=== PATIENT | male | born 1980 | race Caucasian/White ===

== ENCOUNTER 2018-02-03 07:52 | Observation (INO) | payer OTHER ==
--- NOTE | 2018-02-03 08:22 | ED ---
General Adult HPI - General Chief complaint: Chest Pain Stated complaint: CHEST PAIN Source: patient Mode of arrival: ambulatory Limitations: no limitations - History of Present Illness Initial comments: Dictation was produced using [employer] dictation software. please excuse any grammatical, word or spelling errors. Chief Complaint: 37-year-old male past medical history tobacco abuse presents with chest pain History of Present Illness: She is a 29-year-old male presents with chest pain. Patient states that he was in bed when he awoke approximately 1 AM with severe sharp chest pain. He states the chest pain is located to the right and left anterior chest. It's worse with deep inspiration. who accompanies patient states that he's been coughing all night. He, vomiting, diaphoresis associated with this chest pain. At approximately 1 AM when he woke up he was taken to [facility] emergency Department were cardiac workup was pursued. Patient was concerned he is having a heart attack. Cardiac workup was performed. He reports that he was initially recommended to be transferred to [facility] however they preferred that he be transferred to [facility] for financial reasons. Case is discussed with on-call inspector subassembly last night recommended that patient be transferred to [facility] for possible cardiac catheterization. There was concern about unstable angina prompting me to transfer here. Patient feels well at the moment. States she is given morphine with improvement of his symptoms. Patient denies any strong family history of cardiac disease or sudden before the age of 40 The ROS documented in this emergency department record has been reviewed and confirmed by me. Those systems with pertinent positive or negative responses have been documented in the HPI. All other systems are other negative and/or noncontributory. - Related Data Home Medications Medication Instructions Recorded Confirmed Dextroamphetamine/Amphetamine 30 mg PO BID 02/03/18 02/03/18 [Adderall] oxyCODONE-APAP 10-325MG [Percocet 1 tab PO BID PRN 02/03/18 02/03/18 10-325 mg] Allergies Allergy/AdvReac Type Severity Reaction Status Date / Time No Known Allergies Allergy Verified 02/03/18 08:28 Review of Systems ROS Statement: Those systems with pertinent positive or pertinent negative responses have been documented in the HPI. ROS Other: All systems not noted in ROS Statement are negative. Past Medical History Additional Past Medical History / Comment(s): chronic back pain History of Any Multi-Drug Resistant Organisms: None Reported Past Surgical History: Hernia Repair Past Psychological History: ADD/ADHD Smoking Status: Current every day smoker Past Alcohol Use History: None Reported Past Drug Use History: None Reported General Exam - General Exam Comments Initial Comments: PHYSICAL EXAM: General Impression: Alert and oriented x3, not in acute distress HEENT: Normocephalic atraumatic, extra-ocular movements intact, pupils equal and reactive to light bilaterally, mucous membranes moist. Cardiovascular: Heart regular rate and rhythm, S1&S2 audible, no murmurs, rubs or gallops Chest: Lungs clear to auscultation bilaterally, no rhonchi, no wheeze, no rales Abdomen: Bowel sounds present, abdomen soft, non-tender, non-distended, no organomegaly Musculoskeletal: Pulses present and equal in all extremities, no peripheral edema Motor: Power 5/5 bilaterally, no focal deficits noted Neurological: CN II-XII grossly intact, no focal motor or sensory deficits noted Skin: Intact with no visualized rashes Psych: Normal affect and mood Limitations: no limitations Course Vital Signs 02/03/18 07:54 Temperature 98.4 F Pulse Rate 73 Respiratory 20 Rate Blood Pressure 112/72 O2 Sat by Pulse 99 Oximetry Medical Decision Making - Medical Decision Making ED course: 37-year-old male transferred from [facility] for concerns of unstable angina. Vital signs upon arrival are within acceptable limits. Patient is well-appearing. Clinical presentation is more suggestive of pleuritic atypical chest pain rather than unstable angina at this time. And risk factors are tobacco abuse. It was reviewed from [facility]. Patient had first troponin that was negative. Rest of labs are otherwise unremarkable. Chest x-ray was negative [facility]. EKG obtained at our facility did not shows findings of ischemia or infarction. Repeat troponin was drawn at her facility given that initial troponin was drawn 3 hours ago. Discussed patient case with Dr. Gardiner. He agrees that patient should be admitted to observation for cardiac consultation and further medical monitoring. Patient received an aspirin at [facility]. Patient reevaluated found in stable medical condition. Patient and family member understandable and agreeable to disposition. EKG Interpretation: A 12 lead EKG was obtained. It was interpreted by myself and attending physician. There is a P wave before every QRS complex. Rate is 69. Rhythm is normal sinus rhythm, DE interval 144, QRS 82, QTC 396. QT is not prolonged. No ST segment depression or elevation. There are ST elevations however they appear to be associated with benign early repolarization given ST morphology.. Overall, this EKG is unremarkable - Lab Data Lab Results 02/03/18 Range/Units 08:18 Troponin I <0.012 (0.000-0.034) ng/mL Disposition Clinical Impression: Chest pain Disposition: ADMITTED IP TO THIS HOSP Referrals: None,Stated [Primary Care Provider] - 1-2 days Decision Time: 09:15
[2018-02-03] MEDS ORDERED: MORPHINE SULFATE 4 MG/ML SYRINGE IVP STA (08:30)
[2018-02-03 09:09] LABS: Troponin I <0.012 ng/mL (0.000-0.034)
[2018-02-03] MEDS ORDERED: NITROGLYCERIN SL TABS 0.4 MG TAB SUBLINGUAL PRN (09:11)
[2018-02-03] MEDS ORDERED: PNEUMOCOCCAL VACC-PNEUMOVAX 23 25 MCG/0.5 ML VIAL IM ONE (09:55)
[2018-02-03 10:01] LABS: Creatine Kinase 167 U/L (55-170)
[2018-02-03 10:11] LABS: Creatine Kinase MB 1.9 ng/mL (0.0-2.4)
[2018-02-03] MEDS: COLCHICINE 0.6 MG EACH PO SCH ×2 (11:57→19:43)
[2018-02-03] MEDS: IBUPROFEN 600 MG TAB PO SCH ×3 (11:57→19:43)
--- NOTE | 2018-02-03 12:31 | ECHOF ---
Referral Reason:chest pain MEASUREMENTS -------- HEIGHT: 172.7 cm WEIGHT: 77.6 kg BP: IVSd: 1.0 cm (0.6 - 1.1) LVIDd: 4.6 cm (3.9 - 5.3) LVPWd: 1.2 cm (0.6 - 1.1) IVSs: 1.3 cm LVIDs: 3.4 cm LVPWs: 1.2 cm LA Diam: 3.4 cm (2.7 - 3.8) Ao Diam: 2.9 cm (2.0 - 3.7) AV Cusp: 1.6 cm (1.5 - 2.6) LA Diam: 4.1 cm (2.7 - 3.8) MV EXCURSION: 21.866 mm (> 18.000) MV EF SLOPE: 113 mm/s (70 - 150) EPSS: 0.2 cm MV E Reggie: 0.68 m/s MV DecT: 184 ms MV A Reggie: 0.60 m/s MV E/A Ratio: 1.14 RAP: 5.00 mmHg RVSP: 25.72 mmHg FINDINGS -------- Sinus rhythm. This was a technically good study. LV size, wall thickness and systolic function are normal, with an EF greater than 55%. The left mónica tricular size is normal. The right ventricle is normal in size. The left atrial size is normal. The right atrial size is normal. The aortic valve is trileaflet, and appears structurally normal. No aortic stenosis or regurgitation. Mild mitral regurgitation is present. Mild tricuspid regurgitation present. There is no evidence of pulmonary hypertension. The right v entricular systolic pressure, as measured by Doppler, is 25.72mmHg. There is no pulmonic regurgitation present. The aortic root size is normal. There is no pericardial effusion. CONCLUSIONS -------- 1. LV size, wall thickness and systolic function are normal, with an EF greater than 55%. 2. The left ventricular size is normal. 3. The right ventricle is normal in size. 4. The left atrial size is normal. 5. The right atrial size is normal. 6. The aortic valve is trileaflet, and appears structurally normal. No aortic stenosis or regurgitati on. 7. Mild mitral regurgitation is present. 8. Mild tricuspid regurgitation present. 9. There is no evidence of pulmonary hypertension. 10. The right ventricular systolic pressure, as measured by Doppler, is 25.72mmHg. 11. There is no pulmonic regurgitation present. 12. The aortic root size is normal. 13. There is no pericardial effusion. CARPET WINDER: Julieta Tubbs RDCS
[2018-02-03 14:39] LABS: Creatine Kinase 118 U/L (55-170)
--- NOTE | 2018-02-03 14:48 | P.HPIM ---
History of Present Illness This is a pleasant 37 years old male with past medical history of GERD, chronic low back pain, frequent bilateral leg/feet numbness and leg cramps, occasional bilateral lateral shoulder and hip pain. Who presents because of chest pain of one-day duration that started around 1:00 yearly a.m. today. The chest pain central nonradiating, sharp increase with a breathing. Was 9/10 in severity in the beginning now came down to dull tolerable pain which shows up only with deep breath. Not associated with dyspnea, no nausea vomiting or change in urine or bowel habits. No fever. EKG in the paper chart: Normal sinus rhythm at 69, left ventricular hypertrophy , ST elevation in several lytes. QTC 396 As per transfer documents patient initial troponins is negative, d-dimer is negative. Chest x-ray report normal exam Review of Systems CONSTITUTIONAL: No fever, no malaise, no fatigue. HEENT: No recent visual problems or hearing problems. Denied any sore throat. CARDIOVASCULAR: No orthopnea, PND, no palpitations, no syncope. PULMONARY: No shortness of breath, no cough, no hemoptysis. GASTROINTESTINAL: No diarrhea, no nausea, no vomiting, no abdominal pain. Normoactive bowel sounds. NEUROLOGICAL: No headaches, no weakness, no numbness. HEMATOLOGICAL: Denies any bleeding or petechiae. GENITOURINARY: Denies any burning micturition, frequency, or urgency. MUSCULOSKELETAL/RHEUMATOLOGICAL: Denies any joint pain, swelling, or any muscle pain. ENDOCRINE: Denies any polyuria or polydipsia. Past Medical History Past Medical History: GERD/Reflux Additional Past Medical History / Comment(s): chronic low back pain, DDD, frequent bilateral leg/feet numbness and leg cramps, occasional bilateral shoulder/hip pain, past migraines. History of Any Multi-Drug Resistant Organisms: None Reported Past Surgical History: Hernia Repair Additional Past Surgical History / Comment(s): Umbilical hernia repair x2. Past Anesthesia/Blood Transfusion Reactions: No Reported Reaction Smoking Status: Current every day smoker - Past Family History Mother Family Medical History: Dementia Father Family Medical History: Hypertension Medications and Allergies Home Medications Medication Instructions Recorded Confirmed Type Dextroamphetamine/Amphetamine 30 mg PO BID 02/03/18 02/03/18 History [Adderall] oxyCODONE-APAP 10-325MG [Percocet 1 tab PO BID PRN 02/03/18 02/03/18 History 10-325 mg] Allergies Allergy/AdvReac Type Severity Reaction Status Date / Time No Known Allergies Allergy Verified 02/03/18 08:28 Physical Exam Vitals: Vital Signs Temp Pulse Pulse Resp BP BP Pulse Ox 02/03/18 10:50 18 02/03/18 10:03 98.3 F 66 18 124/75 94 L 02/03/18 09:33 73 18 112/71 98 02/03/18 07:54 98.4 F 73 20 112/72 99 Intake and Output 02/02/18 02/03/18 02/03/18 22:59 06:59 14:59 Intake Total 118 Balance 118 Intake: Oral 118 Other: Voiding Method Toilet Weight 77.6 kg GENERAL: The patient is alert and oriented x3, not in any acute distress. Well developed, well nourished. HEENT: Pupils are round and equally reacting to light. EOMI. No scleral icterus. No conjunctival pallor. Normocephalic, atraumatic. No pharyngeal erythema. No thyromegaly. CARDIOVASCULAR: S1 and S2 present. No murmurs, rubs, or gallops. PULMONARY: Chest is clear to auscultation, no wheezing or crackles. ABDOMEN: Soft, nontender, nondistended, normoactive bowel sounds. No palpable organomegaly. MUSCULOSKELETAL: No joint swelling or deformity. EXTREMITIES: No cyanosis, clubbing, or pedal edema. NEUROLOGICAL: Gross neurological examination did not reveal any focal deficits. SKIN: No rashes. Thrombosis Risk Factor Assmnt - Choose All That Apply Any of the Below Risk Factors Present?: Yes Each Factor Represents 1 point: Obesity (BMI >25) Other Risk Factors: No Other congenital or acquired thrombophilia - If yes, enter type in comment: No Thrombosis Risk Factor Assessment Total Risk Factor Score: 1 Thrombosis Risk Factor Assessment Level: Low Risk Assessment and Plan Assessment: Acute pericarditis GERD chronic low back pain Story of frequent bilateral leg/feet numbness and leg cramps, occasional bilateral lateral shoulder and hip pain Plan: This is a pleasant 57 years old male who presents with acute pericarditis. Continue with the same treatment. Continue with symptomatic treatment. Resume home medication. Hold ibuprofen. Continue with aspirin as per cardiology recommendation Cardiology consult. Monitor labs and vitals. Pain management. GI and DVT prophylaxis. Further recommendations based on the clinical course of the patient. I VT prophylaxis, mechanical. Heparin has more risks than benefits GI prophylaxis Pepcid
[2018-02-03 14:52] LABS: Creatine Kinase MB 1.3 ng/mL (0.0-2.4); Troponin I <0.012 ng/mL (0.000-0.034)
--- NOTE | 2018-02-03 14:54 | XR ---
EXAMINATION TYPE: XR chest 2V DATE OF EXAM: 02/03/2018 COMPARISON: Prior chest x-ray dated 12 02/03/2018 from outside institution HISTORY: Chest pain TECHNIQUE: Frontal and lateral views of the chest are obtained. FINDINGS: Minimal strand-like densities at the lung bases may reflect atelectasis. There are overlyi ng cardiac leads. Cardiomediastinal silhouette, pulmonary vascularity and rosa isela are stable. No evident pneumothorax or pleural effusion. IMPRESSION: Suspect some basilar atelectasis has developed in the interval, correlate, follow-up sug gested.
--- NOTE | 2018-02-03 14:56 | CONS ---
CONSULTATION Mr. Sepulveda is a 37-year-old gentleman who was transferred from the [facility] with a complaint of chest pain. The patient gives a history that he woke up around 1 o'clock with sharp chest pain. The pain was located in the right and left anterior part of the chest and the pain was increasing with breathing. He had some nausea and diaphoresis associated with that. The patient was subsequently seen at the [facility]. EKGs and initial cardiac enzymes were normal. Patient preferred to be transferred to the [facility] and was transferred. His second EKG done in the [facility] emergency room also did not show any changes. Patient denied any fever or chills. Patient denies any symptoms of recent viral infection and denies any past history of exertional chest pain. PAST MEDICAL HISTORY: Includes history of ADD and hernia repair. SOCIAL HISTORY: Patient is a currently everyday smoker. Patient's home medications include Adderall and oxycodone. PHYSICAL EXAMINATION: At present reveals a 37-year-old gentleman who does not appear to be in any acute distress. Patient is afebrile. Respiratory rate is 20, blood pressure is 112/77 mmHg, oxygen saturation is 99%. HEENT examination is negative. Neck is supple. There is no increase in jugular venous pressure. Both the carotid pulses are felt, there is no bruit. Chest is symmetrical. HEART: The PMI is not felt. First and second heart sounds are normal. There is no evidence of any murmur. Lungs are clinically clear to auscultation and percussion. Abdomen is soft. Liver and spleen are not enlarged. Bowel sounds are heard. EXTREMITIES: Peripheral pulsations are 2+. EKG shows normal sinus rhythm without any acute ischemic changes. There is some J- point elevation. The cardiac troponins are normal x2. On physical examination, there is suggestion of pleural pericardial rub. FINAL IMPRESSION: This patient's predominant problem is a pleuritic pain. There is evidence of pleuropericardial rub suggestive of possible pleurisy and pericarditis. We will get the C-reactive protein and sedimentation rate and treat the patient with Motrin and Colcrys. After the patient's pain is subsided, we will evaluate with a stress test. \ MMODL / IJN: [id number] /
[2018-02-03 21:19] LABS: Creatine Kinase 88 U/L (55-170)
[2018-02-03 21:30] LABS: Creatine Kinase MB 1.1 ng/mL (0.0-2.4); Troponin I <0.012 ng/mL (0.000-0.034)
[2018-02-04 03:24] LABS: Cholesterol 187 mg/dL (<200); HDL Cholesterol 46 mg/dL (40-60); LDL Cholesterol,Calculated 128 mg/dL (0-99); Triglycerides 67 mg/dL (<150)
[2018-02-04] MEDS: IBUPROFEN 600 MG TAB PO SCH (08:38)
[2018-02-04] MEDS: COLCHICINE 0.6 MG EACH PO SCH ×2 (08:38→20:27)
[2018-02-04] MEDS ORDERED: ASPIRIN 325 MG TAB PO SCH (09:00)
[2018-02-04] MEDS ORDERED: KETOROLAC 30 MG/ML 1 ML VIAL IVP STA (09:45)
[2018-02-04] MEDS ORDERED: KETOROLAC 30 MG/ML 1 ML VIAL IVP PRN (11:16)
[2018-02-04] MEDS ORDERED: KETOROLAC 30 MG/ML 1 ML VIAL IVP SCH (12:00)
--- NOTE | 2018-02-04 12:13 | P.PN ---
Subjective Mr. Sepulveda is seen and examined laying flat sleeping in bed. He continues to complain of pleuritic chest pain on right and left side, worse with movement, deep inspiration or positional. He states the pain has improved slightly since admission but still comes when he sits up or lays on his right side. Pain is almost completely resolved if he lays on his left side. CRP 34.2, ESR 13. Blood pressure 110/73 heart rate 60 afeibrile. Echocardiogram obtained yesterday reveals preserved LV systolic function with EF greater than 55%. Objective - Vital Signs Vital signs: Vital Signs Temp 97.9 F 02/04/18 07:15 Pulse 65 02/04/18 07:15 Resp 18 02/04/18 07:15 BP 118/74 02/04/18 07:15 Pulse Ox 97 02/04/18 07:15 Intake & Output 02/03/18 02/04/18 02/04/18 18:59 06:59 18:59 Intake Total 518 240 Balance 518 240 Weight 77.6 kg Intake: Oral 518 240 Other: Voiding Method Toilet Toilet - Exam GENERAL: Well-appearing, well-nourished and in no acute distress. NECK: Supple without JVD or thyromegaly. LUNGS: Breath sounds clear to auscultation bilaterally. Respiration equal and unlabored. No wheezes, rales or rhonchi. HEART: Regular rate and rhythm without murmurs, rubs or gallops. S1 and S2 heard. EXTREMITIES: Normal range of motion, no edema. No clubbing or cyanosis. Peripheral pulses intact. - Labs Labs: Abnormal Lab Results - Last 24 Hours (Table) 02/03/18 02/03/18 Range/Units :18 13:52 C-Reactive Protein 34.2 H (<10.0) mg/L LDL Cholesterol, Calc 128 H (0-99) mg/dL Assessment and Plan Assessment: ASSESSMENT Acute pericarditis on colchicine and ibuprofen PLAN Continue with colchicine and ibuprofen as previously ordered. Increase PO intake of water. Keep for another 24 hours for ongoing monitoring. If pain is better tomorrow he should be able to go home. Nurse Practitioner note has been reviewed, I agree with a documented findings and plan of care. Patient was seen and examined.
[2018-02-04] MEDS ORDERED: HYDROmorphone 1 MG/ML 1 ML SYRINGE IVP STA ×2 (14:11→14:19)
[2018-02-04] MEDS ORDERED: ALPRAZolam 0.5 MG TAB PO STA (14:19)
[2018-02-04] MEDS ORDERED: MORPHINE SULFATE 4 MG/ML SYRINGE IVP PRN (15:04)
[2018-02-04] MEDS: traMADol 50 MG TAB PO SCH ×2 (16:46→21:07)
[2018-02-05] MEDS: traMADol 50 MG TAB PO SCH ×2 (08:49→16:24)
[2018-02-05] MEDS: COLCHICINE 0.6 MG EACH PO SCH (08:49)
--- NOTE | 2018-02-05 09:27 | P.PN ---
Subjective Patient feels better today. Chest pain is better. He was diagnosed with pericarditis and treated with colchicine On examination temperature 99.2F, normal respirations normal heart rate blood pressure normal 110/72 mmHg No pericardial rub no murmurs Breath sounds are clear no rhonchi no crackles Abdomen soft nontender Extremities warm no edema Impression Pericarditis on colchicine Suggest Patient go home from a cardiac standpoint and follow Dr. Smith. He's been instructed not to use steroids for rapid relief of pain. He should be treated with colchicine and H2 blockers Objective - Vital Signs Vital signs: Vital Signs Temp 99.2 F 02/05/18 04:00 Pulse 81 02/05/18 04:00 Resp 16 02/05/18 04:00 BP 110/72 02/05/18 04:00 Pulse Ox 94 L 02/05/18 04:00 Intake & Output 02/04/18 02/05/18 02/05/18 18:59 06:59 18:59 Intake Total 462 Balance 462 Intake: Oral 462 Other: Voiding Method Toilet Toilet # Voids 1
[2018-02-05 16:01] VITALS: BP 115/81; PULSE 79; RESP 18; TEMP 98.5
--- NOTE | 2018-02-05 17:04 | P.DS ---
Providers Date of admission: 02/03/18 09:11 Attending physician: James Boyce Consults: 02/03/18 09:11 Consult Physician Urgent Consulting Provider: Ivan Gardiner Consult Reason/Comments: chest pain Do you want consulting provider notified?: Already Contacted Primary care physician: Stated None Hospital Course: This is a pleasant 37 years old male with past medical history of GERD, chronic low back pain, frequent bilateral leg/feet numbness and leg cramps, occasional bilateral lateral shoulder and hip pain. Who presents because of chest pain of one-day duration . EKG in the paper chart: Normal sinus rhythm at 69, left ventricular hypertrophy, ST elevation in several leads. QTC 396. As per transfer documents patient initial troponins is negative, d-dimer is negative. Chest x-ray report normal exam. Echocardiogram: Ejection fraction 55%, there is no pericardial effusion. Patient has been evaluated by clinical care manager and suspected to have pericarditis, patient was treated with pain killers, and he showed interval improvement, on the day of discharge patient has minimal chest pain about 1-2 in severity only on deep inspiration. No coughing no shortness of breath no fever. Patient has been cleared by cardiology for discharge Problem list and management plan were discussed with the patient and he verbalized understanding and acceptance. Patient is found stable he needs follow-up as an outpatient. A shunt agrees with the appointments and its timing with the cardiology office. GENERAL: The patient is alert and oriented x3, not in any acute distress. Well developed, well nourished. HEENT: Pupils are round and equally reacting to light. EOMI. No scleral icterus. No conjunctival pallor. Normocephalic, atraumatic. No pharyngeal erythema. No thyromegaly. CARDIOVASCULAR: S1 and S2 present. No murmurs, rubs, or gallops. PULMONARY: Chest is clear to auscultation, no wheezing or crackles. ABDOMEN: Soft, nontender, nondistended, normoactive bowel sounds. No palpable organomegaly. MUSCULOSKELETAL: No joint swelling or deformity. EXTREMITIES: No cyanosis, clubbing, or pedal edema. NEUROLOGICAL: Gross neurological examination did not reveal any focal deficits. SKIN: No rashes. Time spent more than 35 minutes Patient Condition at Discharge: Good Plan - Discharge Summary Discharge Rx Participant: No New Discharge Prescriptions: New Colchicine [Colcrys] 0.6 mg PO BID 10 Days #20 each Famotidine [Pepcid] 20 mg PO BID #60 tab Continue Dextroamphetamine/Amphetamine [Adderall] 30 mg PO BID oxyCODONE-APAP 10-325MG [Percocet 10-325 mg] 1 tab PO BID PRN PRN Reason: Pain Discharge Medication List Dextroamphetamine/Amphetamine [Adderall] 30 mg PO BID 02/03/18 [History] oxyCODONE-APAP 10-325MG [Percocet 10-325 mg] 1 tab PO BID PRN 02/03/18 [History] Colchicine [Colcrys] 0.6 mg PO BID 10 Days #20 each 02/05/18 [Rx] Famotidine [Pepcid] 20 mg PO BID #60 tab 02/05/18 [Rx] Follow up Appointment(s)/Referral(s): Radames Barakat MD [STAFF PHYSICIAN] - 1 Week Aleena Smith MD [STAFF PHYSICIAN] - 02/11/18 4:15 pm Activity/Diet/Wound Care/Special Instructions: diet: cardiac diet activity: limited till you see your doctor Discharge Disposition: HOME SELF-CARE
[2018-02-05] MEDS ORDERED: FAMOTIDINE 20 MG TAB PO SCH (18:00)
== END 2018-02-05 17:09 | disposition home or self-care (01) ==
LOC: EC 07:52 → 3OBS 09:11
PROVIDERS: ADMIT Hospitalist; ATTEND Hospitalist
DX: I30.9 Acute pericarditis, unspecified (principal); G89.29 Other chronic pain; M54.5 Low back pain; F90.9 Attention-deficit hyperactivity disorder, unspecified type; F17.200 Nicotine dependence, unspecified, uncomplicated; K21.9 Gastro-esophageal reflux disease without esophagitis; E66.9 Obesity, unspecified; Z68.26 Body mass index [BMI] 26.0-26.9, adult; G43.909 Migraine, unspecified, not intractable, without status migrainosus; R25.2 Cramp and spasm; R20.0 Anesthesia of skin; M25.512 Pain in left shoulder; M25.511 Pain in right shoulder; M25.559 Pain in unspecified hip; Z79.899 Other long term (current) drug therapy; Z82.49 Family history of ischemic heart disease and other diseases of the circulatory system; Z81.8 Family history of other mental and behavioral disorders
CPT/HCPCS: 99285 ×2; 96374 ×2; 96375; 96376; 36415; 93005; 93306; 80061; 85652; 82550; 82553; 84484; 86140; 71046; G0378 ×3; J2270 ×2; J1885; J1170

== ENCOUNTER → 2019-10-30 | Outpatient (CLI) | payer BC | END | disposition home or self-care (01) | LOC: LABWHC1 08:36 | PROVIDERS: ATTEND Emergency Medicine | DX: U07.1 COVID-19 (principal) ==

== ENCOUNTER → 2019-12-14 | Day surgery (SDC) | payer BC ==
[~2019-12-14] MED LIST: LACTATED RINGERS 1,000 ML IV ONE; LACTATED RINGERS 1,000 ML IV SCH; LIDOCAINE 1% (10MG/ML) FOR IV START INTRADERMA ONE; LIDOCAINE 1% INJ 10MG/ML (20 ML MDV) ONE; MIDAZOLAM 2 MG/2 ML VIAL ONE; PROPOFOL 10 MG/ML 20 ML VIAL IV ONE; fentaNYL (PF) 50 MCG/ML 2 ML AMP ONE
[2019-12-14 10:57] VITALS: RESP 16; TEMP 96.9
--- NOTE | 2019-12-14 11:02 | P.GSHP ---
History of Present Illness H&P Date: 12/14/19 Chief Complaint: GI bleed This a 39-year-old male who's had complete rectal bleeding. Patient presents today for colonoscopy. He is also had complaints of epigastric pain. He will also EGD performed. Past Medical History Past Medical History: GERD/Reflux Additional Past Medical History / Comment(s): chronic low back pain, DDD, frequent bilateral leg/feet numbness and leg cramps, occasional bilateral shou lder/hip pain, past migraines. HAVING BLOOD IN STOOL AND INCREASE IN HEARTBURN History of Any Multi-Drug Resistant Organisms: None Reported Past Surgical History: Hernia Repair Additional Past Surgical History / Comment(s): Umbilical hernia repair x2. Past Anesthesia/Blood Transfusion Reactions: No Reported Reaction Smoking Status: Current every day smoker - Past Family History Mother Family Medical History: Dementia Father Family Medical History: Hypertension Medications and Allergies Home Medications Medication Instructions Recorded Confirmed Type No Known Home Medications 12/13/19 12/14/19 History Allergies Allergy/AdvReac Type Severity Reaction Status Date / Time No Known Allergies Allergy Verified 12/14/19 10:43 Surgical - Exam Vital Signs Temp Pulse Resp BP Pulse Ox 96.9 F L 90 16 137/61 97 12/14/19 10:56 12/14/19 10:56 12/14/19 10:56 12/14/19 10:56 12/14/19 10:56 - General well developed, well nourished, no distress - Eyes PERRL - ENT normal pinna - Neck no masses - Respiratory normal expansion - Cardiovascular Rhythm: regular - Abdomen Abdomen: soft, non tender Assessment and Plan Assessment: GI bleed. We'll perform colonoscopy. Epigastric abdominal pain. We'll perform EGD.
--- NOTE | 2019-12-14 11:22 | P.OP ---
Date of Procedure: 12/14/19 Preoperative Diagnosis: GI bleed Epigastric pain Postoperative Diagnosis: Antral gastritis Hiatal hernia Esophagitis External hemorrhoids Procedure(s) Performed: EGD Colonoscopy Anesthesia: MAC Surgeon: Dale Pelaez Pathology: other (Antrum, esophagus) Condition: stable Disposition: PACU Description of Procedure: The patient's placed on the endoscopy table in the lateral position. He received IV sedation. The gastric was placed oropharynx passed in the esophagus and stomach. Scope was then placed through the pylorus. The first and second portion of the duodenum appeared normal. Scope was then brought back the antrum this. Mildly inflamed. A biopsies performed. Scope was unretroflexed and remainder of the stomach appeared normal. There was a moderate size hiatal hernia. The GE junction was at 38 cm. The distal esophagus appeared inflamed and a biopsy was performed. The proximal esophagus appeared normal. Scope was withdrawn for patient. Next digital rectal exam was performed which revealed external hemorrhoids. The flexible colonoscope was then placed patient anus passed throughout the entire colon. The ileocecal valve was visualized. The cecum, ascending and transverse colon appeared normal. In the descending and sigmoid colon there is mild diverticular changes. Scope was then withdrawn through the anus and external hemorrhoids are noted.
[2019-12-14 11:39] VITALS: BP 113/67; PULSE 70
== END | disposition home or self-care (01) ==
LOC: ORWHC2ENDO 10:25
PROVIDERS: ATTEND Surgery
DX: K64.4 Residual hemorrhoidal skin tags (principal); K57.30 Diverticulosis of large intestine without perforation or abscess without bleeding; K29.70 Gastritis, unspecified, without bleeding; K44.9 Diaphragmatic hernia without obstruction or gangrene; K21.0 Gastro-esophageal reflux disease with esophagitis; M54.5 Low back pain; G89.29 Other chronic pain; G43.909 Migraine, unspecified, not intractable, without status migrainosus; F17.200 Nicotine dependence, unspecified, uncomplicated; Z98.890 Other specified postprocedural states; Z81.8 Family history of other mental and behavioral disorders; Z82.49 Family history of ischemic heart disease and other diseases of the circulatory system
CPT/HCPCS: 88305; 45378; 43239; J2250; J2001; J3010; J2704

== ENCOUNTER → 2023-12-06 | Outpatient (CLI) | payer OTHER ==
--- NOTE | 2023-12-06 16:25 | XR ---
EXAMINATION TYPE: XR Hip Complete RT DATE OF EXAM: 12/06/2023 CLINICAL HISTORY: pain TECHNIQUE: AP and frogleg views of the right hip are obtained. COMPARISON: None. FINDINGS: There is no acute fracture/dislocation evident. The joint space appears within normal li mits. The overlying soft tissue appears unremarkable. IMPRESSION: 1. There is no acute fracture or dislocation. ICD 10 NO FRACTURE, INITIAL EVALUATION
--- NOTE | 2023-12-06 16:25 | XR ---
EXAMINATION TYPE: XR lumbar spine 2 or 3V DATE OF EXAM: 12/06/2023 CLINICAL HISTORY: pain TECHNIQUE: Three views of the lumbar spine are submitted. COMPARISON: None. FINDINGS: Mild loss of height superior endplate of L1 is of uncertain age and etiology. Remaining lumbar segmen ts are of normal height. There is only mild to minimal narrowing at L3-4 L4-5 and L5-S1. Minimal vent ral spondylosis. IMPRESSION: Mild loss of height superior endplate of L1 is of uncertain age and etiology.
== END | disposition home or self-care (01) ==
LOC: RADXRMAIN 15:54
PROVIDERS: ATTEND Emergency Medicine
DX: S39.012A Strain of muscle, fascia and tendon of lower back, initial encounter (principal); S76.001A Unspecified injury of muscle, fascia and tendon of right hip, initial encounter; R29.890 Loss of height
CPT/HCPCS: 72100; 73502

== ENCOUNTER 2023-12-12 13:11 | Emergency (ER) | payer OTHER ==
[2023-12-12 13:19] VITALS: RESP 18
--- NOTE | 2023-12-12 13:41 | ED ---
Back Pain HPI - General Chief Complaint: Back Pain/Injury Stated Complaint: [facility]-Back injury Time Seen by Provider: 12/12/23 13:40 Source: patient, family, RN notes reviewed, old records reviewed Mode of arrival: ambulatory Limitations: no limitations - History of Present Illness Initial Comments: 43-year-old male presented to the ER with a chief complaint of back injury. Patient states on 12-03-2023 he was working pulling up carpet. He states he went to nut picker a piece of the carpet and felt a sharp pain in his lower back. He states that he felt immediate pain rating down to bilateral legs. States since then he has been following up with PCP and occupational health. He is currently scheduled for an MRI but is waiting on insurance preauthorization. He states he has been taking [id number] Tylenol and Motrin for pain control. He also has been taking prescribed Flexeril and placing Voltaren gel on back for symptom control. He reports to the ER today for increase in back pain. He denies any new recent injuries or traumas. He denies any saddle paresthesias, bowel or bladder incontinence, fevers, history of IV drug abuse. He does report pain down the right leg. No other complaints - Related Data Previous Rx's Medication Instructions Recorded Lidocaine 5% Patch [Lidoderm 5% 1 patch TOPICAL DAILY #30 patch 12/12/23 Patch] Allergies Allergy/AdvReac Type Severity Reaction Status Date / Time No Known Allergies Allergy Verified 12/12/23 13:19 Review of Systems ROS Statement: Those systems with pertinent positive or pertinent negative responses have been documented in the HPI. ROS Other: All systems not noted in ROS Statement are negative. Past Medical History Past Medical History: GERD/Reflux Additional Past Medical History / Comment(s): chronic low back pain, DDD, frequent bilateral leg/feet numbness and leg cramps, occasional bilateral shoulder/hip pain, past migraines. HAVING BLOOD IN STOOL AND INCREASE IN HEARTBURN History of Any Multi-Drug Resistant Organisms: None Reported Past Surgical History: Hernia Repair Additional Past Surgical History / Comment(s): Umbilical hernia repair x2. Past Anesthesia/Blood Transfusion Reactions: No Reported Reaction Past Psychological History: No Psychological Hx Reported Smoking Status: Current every day smoker - Past Family History Mother Family Medical History: Dementia Father Family Medical History: Hypertension General Exam Limitations: no limitations General appearance: alert, in no apparent distress Respiratory exam: Present: normal lung sounds bilaterally. Absent: respiratory distress, wheezes, rales, rhonchi, stridor Cardiovascular Exam: Present: regular rate, normal rhythm, normal heart sounds. Absent: systolic murmur, diastolic murmur, rubs, gallop, clicks Extremities exam: Present: normal inspection, full ROM, normal capillary refill. Absent: tenderness, pedal edema, joint swelling, calf tenderness Back exam: Present: tenderness (lumbar spine right), other (Positive straight leg raise right) Neurological exam: Present: alert, oriented X3, CN II-XII intact Skin exam: Present: warm, dry, intact, normal color. Absent: rash Course Vital Signs 12/12/23 12/12/23 13:14 15:43 Temperature 98.2 F 98.4 F Pulse Rate 89 86 Respiratory 18 18 Rate Blood Pressure 151/112 148/99 O2 Sat by Pulse 98 96 Oximetry Medical Decision Making - Medical Decision Making Was pt. sent in by a medical professional or institution (Dr. PA, FLATLOCK SEWING MACHINE OPERATOR, urgent care, hospital, or prison...) When possible be specific @ -No Did you speak to anyone other than the patient for history (EMS, parent, family, police, friend...)? What history was obtained from this source @ -No Did you review nursing and triage notes (agree or disagree)? Why? @ -I reviewed and agree with nursing and triage notes Were old charts reviewed (outside hosp., previous admission, EMS record, old EKG, old radiological studies, urgent care reports/EKG's, prison records)? Report findings @ -No old charts were reviewed Differential Diagnosis (chest pain, altered mental status, abdominal pain women, abdominal pain men, vaginal bleeding, weakness, fever, dyspnea, syncope, headache, dizziness, GI bleed, back pain, seizure, CVA, palpatations, mental health, musculoskeletal)? @ -Differential Back Pain: Strain, zoster, cauda equina syndrome, epidural abscess, vertebral osteomyelitis, discitis, fracture, subluxation, disc herniation, DJD, spinal stenosis, dissection, AAA, pancreatitis, peptic ulcer disease, pyelonephritis, kidney stone, this is not meant to be an all-inclusive list. EKG interpreted by me (3pts min.). @ -None X-rays interpreted by me (1pt min.). @ -Lumbar spine x-rays interpreted by me negative for acute osseous process. CT interpreted by me (1pt min.). @ -None done U/S interpreted by me (1pt. min.). @ -None done What testing was considered but not performed or refused? (CT, X-rays, U/S, labs)? Why? @ -None What meds were considered but not given or refused? Why? @ -None Did you discuss the management of the patient with other professionals (professionals i.e. , PA, FLATLOCK SEWING MACHINE OPERATOR, lab, RT, psych nurse, aids social worker, slag mixer, teacher, project officer, keycase assembler)? Give summary @ -No Was smoking cessation discussed for >3mins.? @ -No Was critical care preformed (if so, how long)? @ -No Were there social determinants of health that impacted care today? How? (Homelessness, low income, unemployed, alcoholism, drug addiction, transportation, low edu. Level, literacy, decrease access to med. care, correction, rehab)? @ -No Was there de-escalation of care discussed even if they declined (Discuss DNR or withdrawal of care, Hospice)? DNR status @ -No What co-morbidities impacted this encounter? (DM, HTN, Smoking, COPD, CAD, Cancer, CVA, ARF, Chemo, Hep., AIDS, mental health diagnosis, sleep apnea, morbid obesity)? @ -None Was patient admitted / discharged? Hospital course, mention meds given and route, prescriptions, significant lab abnormalities, going to OR and other pertinent info. @ -Discharge. 43-year-old male presented to the ER with a chief complaint of back pain. History and physical exam completed. Vitals stable. Patient in no signs of acute distress and nontoxic-appearing. Mild tenderness to lumbar spine and right pelvic girdle. Bilateral lower extremities neurovascular intact. No red flag back pain symptoms indicative cauda equina syndrome. No erythema, rashes, wounds or bruising to back. Patient is able to ambulate without difficulty in the ER. Patient did receive IM Norflex in the ER for pain con trol, with mild improvement. X-rays obtained negative for acute process. Upon reevaluation, patient resting comfortably in exam room in no signs of acute distress. Results discussed with patient, all questions answered. Lidocaine patches prescribed, first 1 placed in the ER. Advise close follow-up with PCP and encourage patient to receive MRI. Strict return parameters discussed. Patient discharged in stable condition. Patient verbally expressed understanding agree with care plan. Case discussed with ED attending with Dr. Pena. Undiagnosed new problem with uncertain prognosis? @ -No Drug Therapy requiring intensive monitoring for toxicity (Heparin, Nitro, Insulin, Cardizem)? @ -No Were any procedures done? @ -No Diagnosis/symptom? @ -Back strain Acute, or Chronic, or Acute on Chronic? @ -Acute Uncomplicated (without systemic symptoms) or Complicated (systemic symptoms)? @ -Uncomplicated Side effects of treatment? @ -No Exacerbation, Progression, or Severe Exacerbation? @ -No Poses a threat to life or bodily function? How? (Chest pain, USA, MS, pneumonia, PE, COPD, DKA, ARF, appy, cholecystitis, CVA, Diverticulitis, Homicidal, Suicidal, threat to staff... and all critical care pts) @ -No - Radiology Data Radiology results: report reviewed, image reviewed Disposition Clinical Impression: Back pain, Musculoskeletal pain Disposition: HOME SELF-CARE Condition: Stable Instructions (If sedation given, give patient instructions): Acute Low Back Pain (ED) Additional Instructions: Please follow-up with PCP. Return to the ER for any new or worsening concerns. Prescriptions: Lidocaine 5% Patch [Lidoderm 5% Patch] 1 patch TOPICAL DAILY #30 patch Is patient prescribed a controlled substance at d/c from ED?: No Referrals: Kvng Danielson MD [Primary Care Provider] - 1-2 days Time of Disposition: 15:23
[2023-12-12] MEDS: ORPHENADRINE 30 MG/ML 2 ML VIAL IM STA (13:43)
--- NOTE | 2023-12-12 14:04 | XR ---
EXAMINATION TYPE: XR lumbar spine 2 or 3V DATE OF EXAM: 12/12/2023 1:59 PM CLINICAL INDICATION:Male, 43 years old with history of pain after injury; [facility] COMPARISON: None TECHNIQUE: XR lumbar spine 2 or 3V - Frontal, lateral and coned in L5-S1 lateral views of the spine. FINDINGS: No evidence of any acute osseous pathology. No evidence of loss of vertebral body height i s seen. There is normal alignment of the lumbar vertebral bodies. Scattered disc space narrowing. Mul tilevel marginal osteophyte formation throughout the visualized spine. There is facet joint arthropat hy throughout the spine. Scattered at least mild neural foraminal stenosis. IMPRESSION: 1. No acute fracture. 2. Mild multilevel disc degeneration.
[2023-12-12] MEDS: LIDOCAINE 4% PATCH TOPICAL ONE (15:30)
[2023-12-12 17:17] VITALS: BP 148/99; PULSE 86; TEMP 98.4
== END 2023-12-12 15:45 | disposition home or self-care (01) ==
LOC: EC 13:11
DX: S39.012A Strain of muscle, fascia and tendon of lower back, initial encounter (principal); M79.18 Myalgia, other site; F17.200 Nicotine dependence, unspecified, uncomplicated; X50.9XXA Other and unspecified overexertion or strenuous movements or postures, initial encounter
CPT/HCPCS: 72100; 99283; 96372; J2360

== ENCOUNTER → 2024-02-29 | Outpatient (CLI) | payer OTHER | END | disposition home or self-care (01) | LOC: LABWHC1 14:57 | PROVIDERS: ATTEND Orthopaedic Surgery | DX: Z22.322 Carrier or suspected carrier of Methicillin resistant Staphylococcus aureus | CPT/HCPCS: 36415; 84403; 86850; 86900; 86901; 87070 ==

== ENCOUNTER → 2024-03-06 | Day surgery (SDC) | payer OTHER ==
--- NOTE | 2024-03-05 20:15 | P.HPOR ---
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 Sepulveda presents to the office today, 02/09/24, for re-check of his L1 burst compression fracture. He notes constant diffuse sharp, achy low back pain. He notes increased pain with bending and twisting. He is experiencing sleep disturbances related to his ongoing pain and symptoms. He states he feels that is is not getting any better with medications, he states the brace did not fit and so he will not wear as it makes it hurt more. He denies any bowel or bladder issues. He states continued issues despite Rx and OTC medications. He was unable to do any therapy and it is not recommended in fracture at this point. He states he would like more pain medications. H8 Patient denies any f/c/sob/cp, perineal numbness or tingling, bowel, or bladder incontinence/retention. Patient is ambulatory independently. P1 The patients past social, medical, family, surgical history, as well as review of systems, have been reviewed. Please refer to the History and Physical form that has been scanned into our electronic medical record system. R0 16 points review of systems completed and as stated in HPI, all other systems reviewed are negative. PAST TREATMENTS: PAST IMAGING: YES - TRAUMA RELATED: YES -lifted box at work, felt pain WORK RELATED: YES -Lifted box at work. PT IN LAST 6 MONTHS: YES - PHYSICIAN DIRECTED HOME EXERCISE PROGRAM: YES - ACTIVITY MODIFICAITON: YES - MEDICATIONS: YES - ALTERNATIVE INTERVENTIONS (CHIROPRACTIC, ACCUPUNCTURE, MASSAGE, RICE): YES - BRACING: NO - INJECTIONS (SYED, TF, RFA): YES - MEDICAL HISTORY: Past Medical History: REVIEWED STATED IN CHART Past Surgical History: REVIEWED STATED IN CHART Social History: REVIEWED STATED IN CHART SMOKING: Never smoker ETOH: None SUBSTANCES: None Family History: REVIEWED STATED IN CHART P1 Current Medications: Rx: dextroamphetamine-amphetamine 20 mg tablet Ref: 0 Instructions: take 1 tablet (20 mg) by oral route once daily before breakfast Rx: ibuprofen 200 mg tablet Ref: 0 Instructions: take2 tablet (200 mg) by oral route every 6 hours as needed with food Rx: TylenoL 325 mg tablet Ref: 0 Instructions: take 2 tablets (650 mg) by oral route every 6 hours as needed P1 PHYSICAL EXAM: PC2 PC1 General: AOX3, NAD, Well hydrate, well nourished PN1 HEENT: No lumps or masses Extremities: No color changes, no pooling Heart: RRR, no murmur, no gallop Lungs: CTAB, no w/r/r INTEGUMENT: Appearance: Normal color and turgor Surgical Incisions: Hairy Patches: ABSENT Dorsal Skin Dimples: Normal [employer] spots: ABSENT PALPATION: TTP Midline: YES over the L1 region Paracervical: NO Parathoracic: NO Paralumbar: YES over the L1 region SIJ TESTING: NT POSTURAL BALANCE: Coronal: BALANCED Sagittal: BALANCED Shoulder height: LEVEL Pelvic Girdle: LEVEL ROM AND APPEARANCE: Neck: UNRESTRICTED Lumbar: RESTRICTED with pain Shoulders: Symmetrical Hips: Symmetrical Knees: Symmetrical Hands: Symmetrical Feet: Symmetrical VASCULAR STATUS: PALPABLE PULSES B/L UE AND LE 2/4 RAD/ULNAR/DP/PT Edema: NONE NEUROLOGICAL EXAMINATION: Mental Status: Awake, alert, fully oriented with normal attention, concentration, and memory. Fluent appropriate speech. CRANIAL NERVES: I: Olfactory not assessed. II: Visual acuity normal, no visual field deficit noted with confrontation. III, IV: Normal pupillary reflexes & intact extraocular movements without nystagmus. V, : Intact symmetrical facial sensation. VII: Intact symmetrical facial motor movement: Hearing intact. IX, X: Intact gag, swallow, & normal voice. XI: Sternocleidomastoid, trapezius function intact. XII: Tongue midline with normal movements. TENSIONING: * L'HERMITTE'S SIG:NEG SPURLUNG'S SIGN:NEG CUBITAL TUNNEL COMPRESSION:NEG TINELS AT WRIST:NEG STRAIGH LEG RAISE:NEG CONTRALATERAL STRAIGHT LEG RAISE: NEG MOTOR EXAM (0-5/5, NT) Muscle appearance: Symmetrical, without signs of atrophy or dystrophy UPPER EXTREMITY RIGHT LEFT Shoulder Abduction 5 5 Biceps 5 5 Triceps 5 5 Wrist Extension 5 5 Hand Intrinsics 5 5 Termite Exterminator Helper 5 5 LOWER EXTREMITY RIGHT LEFT Hip Flexion 5 5 Knee Extension 5 5 Knee Flexion 5 5 Dorsiflexion 5 5 Plantarflexion 5 5 EHL 5 5 FHL 5 5 REFLEXES (0-4/2, NT): RIGHT LEFT Bicep 2 2 Brachioradialis 2 2 Triceps 2 2 Patellar 2 2 Achilles 2 2 PATHOLOGICAL REFLEXES: RIGHT LEFT MCDONALD'S ABSENT ABSENT CLONUS ABSENT ABSENT BABINSKI ABSENT ABSENT RECTAL TONE: INTACT/NT SENSATION (0-4, NT): Sensation intact to LT and Pain * C5-T1 distribution BUE * L2-S2 distribution BLE *Exceptions below* DERMATOMAL DEFICIT/RADICULAR PATTERN: GAIT AND FUNCTIONAL EVALUATION: AMBULATORY AID ROMBERG'S TEST INTACT HAND AND FINGER DEXTERITY INTACT YES DYSDIADOCHOKINESIA EXAM NEG B/L YES TOE/HEEL WALK INTACT WITH GOOD BALANCE YES SQUAT AND RISE W/O ASSISTANCE TO 60 DEG KNEE FLEXION YES SINGLE LEG STANCE INTACT TRENDELENBURG NEG IMAGING: XRAY Date: 02/09/24 Location: [facility] Region: LUMBARP Views: AP/LAT IMAGES ARE REVIEWED WITH THE PATIENT IN OFFICE AND DEMONSTRATE THE FOLLOWING: FINDINGS: Minor interval progression of the patients burst compression deformity with 40% compression now. There is minimal interval healing. There is segmental kyphosis due to the compression and wedging anteriorly. This is an AO TYPE A3/OF2 burst compression type fracture. There is no posterior involement at this time. IMPRESSION: It was my pleasure to have seen and examined Melvin. I reviewed the patient's clinical syndrome, physical findings, and imaging studies during the appointment today. It is my impression that the patient has a diagnosis of. 1.L1 burst compression fx AO A3/OF2 with 40% anterior wedge compression deformity 2.Severe back pain PLAN: DISCUSSION: -I have discussed with the patient different options for treatment including, consevative, bracing (he was unable to tolerate due to pain) as well as surgical intervention. We discussed surgery inthe form of Kyphoplasty with Spine Stacy palcement, with and without stabilization. We discussed risks and benefits of all procedures as well as outcomes and potential issues. He understood and was comfortable with these. He then returned a call to the office after speaking with his about the surgery and would like to proceed as outlined below. SURGICAL RECOMMENDATION -L1 OPEN TREATMENT FRACTURE WITH T12-L2 STABILIZATION AND L1 KYPHOPLASTY WITH SPINE STACY PLACEMENT Spine Surgery Clinical and Risk Review I have explained to the patient that as their condition progresses it will cause further neurological deficits and eventual paralysis. Based on the patients imaging, physical exam, and the rapid progression and disabling nature of their symptoms, at this time I recommend surgery in the form or a: SURGICAL RECOMMENDATION -L1 OPEN TREATMENT FRACTURE WITH T12-L2 STABILIZATION AND L1 KYPHOPLASTY WITH SPINE STACY PLACEMENT. I discussed the risk and benefits of this procedure at length with Melvin. The patient agreed to considered pursuing the procedure abovementioned. Prior to surgery, she should follow up with her PCP (Cardio, ID, IM etc) for clearance. Questions were invited and answered, and the patient wishes to proceed as outlined below. Currently, I am recommendin.SURGICAL RECOMMENDATION -L1 OPEN TREATMENT FRACTURE WITH T12-L2 STABILIZATION AND L1 KYPHOPLASTY WITH SPINE STACY PLACEMENT 2.Follow up with PCP for surgical clearance 3.Review of surgical risks and benefits as well as an educational packet on the proposed surgical procedure. Risks: All surgical procedures come with inherent risks, including those related to positioning, anesthesia, intraoperative findings, and postoperative complications. It is important to understand that surgery does not come with any guarantee of a successful outcome as complications and adverse events are always possible. The patient was given a handout in office today discussing the surgical procedure and risks associated with the intervention, both of which were discussed with the patient. These risks include but are not limited to the following: * Experiencing same, different or even worse symptoms in back, neck, arms, or legs compared to before surgery. Requiring further surgery or other forms of treatment presently or at some time in the future at same or other levels of the intended spine surgery. On an extreme but fortunately relatively rare basis severe complication such as blindness, stroke, heart attack, temporary and/or permanent nerve injury, paralysis, coma, or may occur, sometimes without known explanation. Surgical complications may include but are not limited to risk of infecti on, fluid accumulation in the surgical dissection site, including a seroma or hematoma, that requires additional surgery, wound drainage, bleeding, new numbness or weakness, vision changes/loss, spinal fluid leakage, non-healing and/or infected incision, headaches, difficulty or inability to swallow, hoarseness, hemopneumothorax, pneumothorax, impotence, retrograde ejaculation, vaginal dryness; injury to nerves, spinal cord, blood vessels, lymphatics or other vital organs (i.e., bowel injury, injury to the great vessels); heterotopic bone formation; complications related to the hardware such as screws, rods, cages including misplaced hardware, device failure, instrumentation at the wrong spine level, hardware fracture/breakage, or hardware loosening; vertebral failure of the spinal column above or below the newly placed hardware; retained surgical instrumentations or devices and the need for further surgery. * Medical risks of the planned spine surgery include but are not limited to generalized Infections to the whole body or local areas outside of the surgical site (sepsis), heart attack, bleeding, anaphylaxis, meningitis, seizure, epilepsy, hearing loss, burn oviedo, laceration of the head or other areas of the body, bruising, hypersensitivity of the skin, bladder over distension; allergic reaction; shoulder injury related to positioning; fat, blood and air clots to other areas of the body like heart, lungs, brain; failure of internal organs such as lungs, kidneys, liver and excessive bleeding. If blood transfusions are necessary, note that transfusions may cause intolerance reactions such as anaphylaxis or other complex reactions. Despite best efforts, the results of spine surgery might not heal in terms of bone, soft tissues such as skin, fascia, ligaments, and joints. Additionally, in order to achieve best possible results, spine surgery may be carried out beyond the initially planned levels and involve decompression, fusion including insertion of hardware at levels other than the original intended area of surgical interest change some portions of the procedure in order to ensure the best possible outcomes. With spine surgery and spinal fusion, there are different off label uses of instrumentation (devices, implants and hardware) as well as biological substances (bone morphogenic proteins, demineralized bone matrix) as well as using extra bone from allograft sources (i.e. cadaver bone) or autograft (iliac crest bone, ribs, or the spine itself). The patient has been given information about these practices and their inherent risks and benefits. We have discussed at length the impact of tobacco and smoking has on healing. We have discussed that the patient has stopped smoking for 6 weeks prior to and will commit to at leats 4 weeks after surgery of cessation of smoking and or any tobacco or nicotiene use. They have agreed to this and contest that they have been tobacco/nicotiene free for the past 6 weeks. The patient has had a chance to review all the listed information, has been given print outs detailing this information, and has had all his/her questions answered to their satisfaction. It was my pleasure to have seen and examined Melvin. In our visit today we have had a chance to go over my understanding of our patient's current condition, the natural course history without intervention and various interventional options. Questions were invited and answered, and the patient wishes to proceed as outlined above. I have seen and examined the patient for 25 minutes and we have spent more than 50% of the time in repeat and detailed counseling about the patient's condition, its natural course history with out and as much as can be predicted with surgery and re-review of various surgical treatment options. In conclusion, Melvin requested we proceed with the above suggested surgery and are willing to accept risks and limitations of the suggested surgery as nature of the disease process and our best attempts at treatment for the condition. Thank you again for allowing us to be part of your patient's care. Please don't hesitate to contact me if you have any further questions. THERAPIES -No PT at thistime. -Cont. with Heat/Ice as warranted -Cont. with supplementation Vit D, Vit C, Ca2+, High protein diet -OK for massage or other alternative treatment modalities as able. If it exacerbates your sx do not continue ACTIVITY -As tolerated, Use TLSO brace when up and about. -NO LIFTING BENDING TWISTING PUSHING PULLING GREATER THAN -10 lbs -Recommend walking up to 30 min 2x daily on a flat easy surface with good support. MEDICATIONS -New scrip for Motrin given as well as Celebrex. Pt asked for refill on [place], we will avoid opiates and if he feels he still needs these then we need to further consider surgery -Take as directed -Cont. home medications as directed by your PCP. Check with your PCP for any medication interactions or issues if needed. IMAGING -No new INJECTIONS -NA FOLLOW UP: POST OP PLAN AT NEXT VISIT: RECEK PATIENT EDUCATION: Medications Reviewed: YES In our visit today Mr. Sepulveda and I have had a chance to go over my understanding of the patient's current condition, the natural course history without intervention and various interventional options. Questions were invited and answered, and the patient wishes to proceed as outlined above. I will be sure to keep you updated after Mr. Sepulveda returns here for further follow-up. Thank you again for your referral. Please do not hesitate to contact me if you have any further questions. Signed and authenticated by: Varinder Abel [facility] [address] [address] . This message is confidential, intended only for the named recipient(s) and may contain information that is privileged or exempt from disclosure under applicable law. If you are not the intended recipient(s), you are notified that the dissemination, distribution or copying of this information is prohibited. If you received this message in error, please notify the sender then delete this message. #Orders: Lumbar 2v xray # SIGNED BY Varinder Hutchins (GOO)02/11/2024 07:17AM # REVISED BY Varinder Hutchins (GO)02/11/2024 11:25AM Past Medical History Past Medical History: GERD/Reflux, Musculoskeletal Disorder Additional Past Medical History / Comment(s): chronic low back pain, DDD, frequent bilateral feet numbness, vertebral fx. in November, past migraines. past hx. pericarditis 10 yrs. ago History of Any Multi-Drug Resistant Organisms: None Reported Past Surgical History: Hernia Repair Additional Past Surgical History / Comment(s): Umbilical hernia repair x2. colonoscopy Past Anesthesia/Blood Transfusion Reactions: No Reported Reaction Smoking Status: Former smoker, Vaper - Past Family History Mother Family Medical History: Dementia Father Family Medical History: Hypertension Medications and Allergies Home Medications Medication Instructions Recorded Confirmed Type Cyclobenzaprine [Flexeril] 10 mg PO HS 02/28/24 02/28/24 History Dextroamphetamine/Amphetamine 20 mg PO BID 02/28/24 02/28/24 History [Dextroamphetamine/Amphetamine 20 mg Tab] Omeprazole [PriLOSEC] 20 mg PO AC-BID 02/28/24 02/28/24 History Allergies Allergy/AdvReac Type Severity Reaction Status Date / Time No Known Allergies Allergy Verified 02/28/24 15:30 Physical Examination Osteopathic Statement: *. No significant issues noted on an osteopathic structural exam other than those noted in the History and Physical/Consult.
[~2024-03-06] MED LIST changes: +KETAMINE HCL IN 0.9 % NACL 50 MG/5 ML SYRINGE ONE; -LACTATED RINGERS 1,000 ML IV ONE; -LACTATED RINGERS 1,000 ML IV SCH; -LIDOCAINE 1% (10MG/ML) FOR IV START INTRADERMA ONE; +MIDAZOLAM 2 MG/2 ML VIAL IV PRN; +ONDANSETRON 4 MG/2 ML VIAL IVP PRN; +SUCCINYLCHOLINE CHLORIDE 200 MG/10 ML VIAL IV ONE; +TRANEXAMIC 1,000 MG/100ML-NACL 1,000 MG in SALINE 1 100ML.BAG IVPB PRN; +TRANEXAMIC 1,000 MG/100ML-NACL PREMIX BAG ONE; +fentaNYL (PF) 50 MCG/ML 2 ML AMP IVP PRN
[2024-03-06] MEDS: LACTATED RINGERS 1,000 ML IV SCH (06:35)
[2024-03-06] MEDS: IV FLUID CONTINUATION 1,000 ML IV ONE (06:35)
[2024-03-06] MEDS: LIDOCAINE 1% (10MG/ML) FOR IV START INTRADERMA PRN (06:35)
[2024-03-06] MEDS: ONDANSETRON 4 MG/2 ML VIAL IVP ONE (06:55)
[2024-03-06] MEDS: GABAPENTIN 300 MG CAP PO PRN (06:55)
[2024-03-06] MEDS: ACETAMINOPHEN TAB 500 MG TAB PO PRN (06:55)
[2024-03-06] MEDS: DEXAMETHASONE SOD PHOSPHATE 4 MG/ML 1 ML VIAL IV ONE (06:56)
[2024-03-06 07:20] LABS: INR 0.9 (<1.2); Prothrombin Time 10.4 sec (10.0-12.5)
[2024-03-06 07:22] LABS: African American GFR (CKD) >90 (>60 ml/min/1.73 sqM); Anion Gap 7 mmol/L; Blood Urea Nitrogen 18 mg/dL (9-20); Carbon Dioxide 27 mmol/L (22-30); Chloride 108 mmol/L (98-107); Glucose 103 mg/dL (74-99); Non-African American GFR(CKD) >90 (>60 ml/min/1.73 sqM); Sodium 142 mmol/L (137-145)
[2024-03-06 07:23] LABS: Basophils % (A) 0 %; Eosinophils # (A) 0.3 k/uL (0-0.7); Eosinophils % (A) 4 %; HCT 42.7 % (39.0-53.0); HGB 14.7 gm/dL (13.0-17.5); Lymphocytes # (A) 2.3 k/uL (1.0-4.8); Lymphocytes % (A) 37 %; MCH 33.8 pg (25.0-35.0); MCHC 34.4 g/dL (31.0-37.0); MCV 98.2 fL (80.0-100.0); Mean Platelet Volume 7.1; Monocytes # (A) 0.4 k/uL (0-1.0); Monocytes % (A) 7 %; Neutrophils % (A) 49 %; Platelet Count 253 k/uL (150-450); RBC 4.35 m/uL (4.30-5.90); RDW 12.8 % (11.5-15.5); WBC 6.1 k/uL (3.8-10.6)
[2024-03-06] MEDS: IOPAMIDOL M200 10 ML VIAL MISCELLANE ONE (07:57)
[2024-03-06] MEDS: BUPIVACAINE (PF) 0.5% 30 ML VIAL SQ ONE (07:58)
[2024-03-06] MEDS: LIDOCAINE 2%-EPI 1:100,000 20 ML VIAL SQ ONE (07:58)
[2024-03-06] MEDS: LACTATED RINGERS 1,000 ML IV ONE (08:00)
--- NOTE | 2024-03-06 08:33 | P.OP ---
Date of Procedure: 03/06/24 Preoperative Diagnosis: 1. L1 VCF 40% 2. LOW BACK PAIN Postoperative Diagnosis: 1. L1 VCF 40% 2. LOW BACK PAIN Procedure(s) Performed: 1. L1 KYPHOPLASTY WITH BIOPSY Implants: MING CEMENT Anesthesia: GETA Surgeon: Varinder Hutchins [employer] Spray Supervisor #1: Jony Alejandro (WAS PRESENT AND ASSSITED WITH ALL ASPECTS OF THE CASE FROM POSITION TO DRESSING) Estimated Blood Loss (ml): 5 IV fluids (ml): 400 Urine output (ml): 0 Pathology: other (L1 VERTEBRAL BODY) Condition: stable Disposition: PACU Indications for Procedure: I have explained to the patient that as their condition progresses it will cause further neurological deficits and eventual paralysis. Based on the patients imaging, physical exam, and the rapid progression and disabling nature of their symptoms, at this time I recommend surgery in the form or a: SURGICAL RECOMMENDATION -L1 OPEN TREATMENT FRACTURE WITH T12-L2 STABILIZATION AND L1 KYPHOPLASTY WITH SPINE STACY PLACEMENT. I discussed the risk and benefits of this procedure at length with Melvin. The patient agreed to considered pursuing the procedure abovementioned. Prior to surgery, she should follow up with her PCP (Cardio, ID, IM etc) for clearance. Questions were invited and answered, and the patient wishes to proceed as outlined below. Currently, I am recommendin.SURGICAL RECOMMENDATION -L1 OPEN TREATMENT FRACTURE WITH T12-L2 STABILIZATION AND L1 KYPHOPLASTY WITH SPINE STACY PLACEMENT Description of Procedure: Lumbar (1) Kyphoplasty The patient was seen and examined in the preoperative area. All preoperative protocols were followed. Informed consent was obtained, risks and benefits of the procedure were discussed at length. Risks including bleeding infection damage to the surrounding tissue and risk of reoperation were discussed with the patient. Risk of anesthesia up to and including was discussed with the patient. These are outlined in the risk review. They were willing to accept these risks and all the risks of surgery. The patient was given a weight-based dose of antibiotics in the form of 2 g Ancef. The patient was seen and evaluated by the anesthesia team who deemed them fit for surgery. The site was marked, the patient was willing to proceed with the procedure. The patient was transferred to the operative suite by the Department of anesthesia. They were then drifted off to sleep by the department anesthesia and GETA was performed. The patient tolerated this well. Once confirmation of lines and ventilation the patient was transferred to a prone Vick table very carefully. All bony prominences including wrists, elbows, axilla, chest, hips, and thighs, and feet were padded very well. Special attention was paid to the genitalia, and these were padded accordingly. SCDs were placed on bilateral lower extremities and were connected. Arms were well padded and placed on arm boards up and out in the 90/90 position. Once in position, again we confirmed good ventilation capabilities and that lines were running appropriately. The patients Lumbar spine was then exposed. 1010s were placed outlining the incision site. Standard alcohol was used to clean the incision site and allowed to dry. C-arm was used to needle localize the pedicles at L1 and bio-austin the patient and confirm level for incision which was marked with a skin marker. Operative briefing was performed with all teams and everyone in agreement to proceed. The patient was then prepped and draped in a normal sterile fashion. Timeout was then performed, and all parties agreed with the procedure to be performed. Skin ryan was made. Jamshitdi was passed into the L1 vertebral body via the pedicle. This was done with biplane fluoroscopy. Once in good position in the body the trochar is removed. Biopsy needle was passed into the body and a biopsy was taken. Drill was then passed and biopsy material taken from drill as well. Curette then used to reduce endplate and create more space. Balloon was then passed an inflated which showed good reduction of endplate on AP and Lateral and confirmed central placement. The cement was then placed and pt remained stable. Good fill of cement was seen without extravasation. Once good fill, the Jamshedi was removed and the wound irrigated. The skin was closed with a simple stitch and dressed with a bandaid. The patient was then transferred off the table back to their hospital bed a- traumatically. They were extubated by the department of anesthesia. They were then transferred to PACU in stable condition having tolerated the procedure with no complications.
--- NOTE | 2024-03-06 08:36 | XR ---
EXAM TYPE: LUMBAR SPINE X RAY SERIES COMPARISON: NONE HISTORY: Lumbar fusion TECHNIQUE: 5 views are submitted. FINDINGS: Multiple intraoperative views demonstrate grade 1 anterolisthesis lower lumbar spine. Subsequent imag es demonstrate a surgical instrument overlying the thoracolumbar junction and vertebroplasty changes of an upper lumbar segment. IMPRESSION: 1. See above. [facility], , 03/06/2024 8:33 AM
--- NOTE | 2024-03-06 08:38 | FL ---
EXAMINATION TYPE: FL guidance operating room DATE OF EXAM: 03/06/2024 8:23 AM COMPARISON: Pre Operative Images if available both CT/MRI or plain film CLINICAL INDICATION: Male, 43 years old with history of lumbar FUSION; TECHNIQUE: FL guidance operating room, multiple fluoroscopic images provided for procedure. Total fluoroscopy time: 1min 4 seconds Total submitted images to PACS: 4 DAP: 13.993 mGym2 Gycm2 uGym2 cGycm2 or equivalent. FINDINGS: Fluoroscopic images during internal fixation/arthroplasty demonstrate fixation hardware in appropriat e position. Hardware appears intact. No immediate complication identified. IMPRESSION: 1. No evidence for intraoperative complication. 2. Please see the operative/procedural note for further details. [facility], , 03/06/2024 8:36 AM
[2024-03-06] MEDS: HYDROmorphone 0.5 MG/0.5 ML SYRINGE IVP PRN (09:09)
[2024-03-06] MEDS: hydrALAZINE HCL 20 MG/ML 1 ML VIAL IVP STA (09:21)
[2024-03-06 09:41] VITALS: TEMP 97
[2024-03-06 10:54] VITALS: BP 141/90; PULSE 85; RESP 16
== END | disposition home or self-care (01) ==
LOC: OR 05:56
PROVIDERS: ATTEND Orthopaedic Surgery
CPT/HCPCS: 72100; 80048; 85025; 85610; 88307; 88311

== ENCOUNTER 2024-11-07 08:44 | Day surgery (SDC) | payer BC ==
[2024-11-06 11:54] VITALS: BMI 28.6
[~2024-11-07 08:44] MED LIST changes: -KETAMINE HCL IN 0.9 % NACL 50 MG/5 ML SYRINGE ONE; +LIDOCAINE 1% (10MG/ML) FOR IV START INTRADERMA PRN; -LIDOCAINE 1% INJ 10MG/ML (20 ML MDV) ONE; -MIDAZOLAM 2 MG/2 ML VIAL IV PRN; -MIDAZOLAM 2 MG/2 ML VIAL ONE; -ONDANSETRON 4 MG/2 ML VIAL IVP PRN; -PROPOFOL 10 MG/ML 20 ML VIAL IV ONE; -SUCCINYLCHOLINE CHLORIDE 200 MG/10 ML VIAL IV ONE; -TRANEXAMIC 1,000 MG/100ML-NACL 1,000 MG in SALINE 1 100ML.BAG IVPB PRN; -TRANEXAMIC 1,000 MG/100ML-NACL PREMIX BAG ONE; -fentaNYL (PF) 50 MCG/ML 2 ML AMP IVP PRN; -fentaNYL (PF) 50 MCG/ML 2 ML AMP ONE
[2024-11-07] MEDS: IV FLUID CONTINUATION 1,000 ML IV ONE (09:05)
[2024-11-07 09:12] VITALS: RESP 16; TEMP 97.2
[2024-11-07] MEDS: LACTATED RINGERS 1,000 ML IV SCH (09:23)
[2024-11-07] MEDS ORDERED: PROPOFOL 10 MG/ML 20 ML VIAL IV ONE (09:41)
--- NOTE | 2024-11-07 09:54 | P.PCN ---
Date of Procedure: 11/07/24 Procedure(s) Performed: BRIEF HISTORY: Patient is a 44-year-old pleasant white male scheduled for an elective colonoscopy as a part of screening for colon cancer/positive Cologuard. PROCEDURE PERFORMED: Colonoscopy. PREOPERATIVE DIAGNOSIS: Screening for colon cancer/positive Cologuard. IV sedation per Anesthesia. PROCEDURE: After informed consent was obtained, the patient, was brought into the endoscopy unit. IV sedation was administered by Anesthesia under continuous monitoring. Digital rectal examination was normal. Initially the Olympus CF-160 flexible video colonoscope was then inserted in the rectum, gradually advanced into the cecum without any difficulty. Careful examination was performed as the scope was gradually being withdrawn. Ileocecal valve and the appendiceal orifice were visualized and appeared normal. Prep was excellent. Mucosa of the cecum, ascending colon, transverse colon, descending colon, sigmoid colon, and rectum appeared normal. Retroflexion was performed in the rectum and small internal hemorrhoid s were seen. The patient tolerated the procedure well. IMPRESSION: Normal-appearing colon from rectum to cecum with no evidence of colitis or colorectal neoplasia. Grade 2 internal hemorrhoids RECOMMENDATIONS: Findings of this examination were discussed with the patient as well as his family. He was advised to be on high-fiber diet and take fiber supplements on regular basis. Recommend repeat screening colonoscopy in 10 years..
[2024-11-07 10:19] VITALS: BP 110/88; PULSE 73
== END 2024-11-07 10:30 | disposition home or self-care (01) ==
LOC: ORWHC2ENDO 08:44
PROVIDERS: ATTEND Internal Medicine Gastroenterology
DX: Z12.11 Encounter for screening for malignant neoplasm of colon (principal); K64.1 Second degree hemorrhoids; R19.5 Other fecal abnormalities; K21.9 Gastro-esophageal reflux disease without esophagitis; F90.9 Attention-deficit hyperactivity disorder, unspecified type; G62.9 Polyneuropathy, unspecified; G43.909 Migraine, unspecified, not intractable, without status migrainosus; F17.290 Nicotine dependence, other tobacco product, uncomplicated; Z79.899 Other long term (current) drug therapy
CPT/HCPCS: 45378; J2704